=== PATIENT | male | born 1965 | race Caucasian/White ===

== ENCOUNTER 2017-03-25 10:29 | Day surgery (SDC) | payer BC, OTHER ==
[2017-03-17 11:47] VITALS: BMI 25.8
[2017-03-25] MEDS ORDERED: Ketorolac Tromethamine 30 MG/ML VIAL ONE (10:56)
[2017-03-25] MEDS ORDERED: CEFAZOLIN/Water 2 GM/20 ML SYRINGE ONE (10:56)
[2017-03-25 11:24] LABS: #Eosinphils 0.1 thou/uL (0.0-0.7); #Monocytes 0.2 thou/uL (0.11-0.59); #Neutrophils 3.2 thou/uL (1.40-6.50); %Basophils 0.2 % (0.0-1.0); %Eosinophils 3.3 % (0.0-10.0); %Lymphocytes 22.4 % (21.0-51.0); %Monocytes 4.7 % (0.0-10.0); %Neutrophils 69.4 % (42.0-75.0); Hemoglobin 13.3 g/dL (14.0-18.0); Mean Corpuscular HGB CONC 31.8 g/dL (32.0-36.0); Mean Platelet Volume 7.3 fL (7.4-10.4); Platelet Count 169 thou/uL (130-400); RBC Distribution Width 12.5 % (11.5-14.5); Red Blood Cell (RBC) Count 4.14 mill/uL (4.70-6.10); White Blood Cell (WBC) Count 4.6 thou/uL (4.8-10.8)
[2017-03-25 11:41] LABS: Anion Gap 13 mmol/L (10-20); BUN (Urea Nitrogen) 17 mg/dL (8.4-25.7); Calc. Creatinine Clearance 121 mL/min (70-130); Calcium 9.8 mg/dL (7.8-10.44); Carbon Dioxide 26 mmol/L (22-29); Chloride 105 mmol/L (98-107); Estimated GFR-MDRD Greater than 90; Glucose 98 mg/dL (70-105); Potassium 4.4 mmol/L (3.5-5.1); Sodium 140 mmol/L (136-145)
[2017-03-25] MEDS ORDERED: Bupivacaine/Epinephrine 0.25% 30 ML VIAL ONE ×2 (12:07→13:39)
[2017-03-25] MEDS ORDERED: Bupivacaine 0.25% HCL 30 ML VIAL ONE (12:07)
[2017-03-25] MEDS ORDERED: Bupivacaine PF 0.5% 30 ML VIAL ONE (12:10)
[2017-03-25] MEDS ORDERED: Midazolam HCl 2 mg/2 ml Vial ONE (12:11)
[2017-03-25] MEDS ORDERED: Fentanyl 100 MCG/2 ML VIAL ONE ×2 (12:12→13:40)
[2017-03-25] MEDS ORDERED: Propofol 200 MG/20 ML VIAL ONE (13:49)
[2017-03-25] MEDS ORDERED: Lidocaine 1% PF 5 ML VIAL ONE (13:49)
[2017-03-25] MEDS ORDERED: Glycopyrrolate 0.2 MG/ML 5 ML SYRINGE ONE (13:49)
[2017-03-25] MEDS ORDERED: Dexamethasone 20 MG/5 ML VIAL ONE (13:49)
[2017-03-25] MEDS ORDERED: Ondansetron HCl/PF 4 MG/2 ML Vial ONE (13:49)
--- NOTE | 2017-03-25 14:24 | EKG ---
Test Reason : PREOP Blood Pressure : / mmHG Vent. Rate : 063 BPM Atrial Rate : 063 BPM P-R Int : 178 ms QRS Dur : 158 ms QT Int : 468 ms P-R-T Axes : 052 022 161 degrees QTc Int : 478 ms Normal sinus rhythm Possible Left atrial enlargement Left bundle branch block Abnormal ECG When compared with ECG of 01-APR-2016 21:13, No significant change was found Confirmed by DR. Adela VAUGHAN ([id number]) on 03/25/2017 2:23:20 PM Referred By: KALYN Confirmed By:DR. Adela VAUGHAN
--- NOTE | 2017-03-27 14:48 | OP ---
DATE OF PROCEDURE: 03/25/2017 PREOPERATIVE DIAGNOSIS: Left inguinal hernia. POSTOPERATIVE DIAGNOSIS: Left inguinal hernia, pantaloon. OPERATION PERFORMED: Left inguinal hernia repair with mesh patch and plug, utilizing both a medium a nd a large plug for the hernia on both sides of his epigastric vessels. SURGEON: Yevgeniy Crane M.D. ANESTHESIA: General with laryngeal mask airway. INDICATIONS: The patient is a 52-year-old white male. He presents with an easily visible and palpab le left inguinal hernia and was taken to the operating room at this time for repair. DESCRIPTION OF OPERATION: Informed consent was obtained. The patient was taken to the operating lance m where general endotracheal anesthesia was obtained with the patient in supine position. Left groin was trimmed of hair, prepped with ChloraPrep, and draped in sterile fashion. Local anesthetic was i nfiltrated using 0.25% Marcaine with epinephrine. Oblique left inguinal incision was created and dis section was carried through skin and subcutaneous tissue. The fascia was incised parallel to the fib ers so as to open the external ring. Dissection carried out within the inguinal canal was used to is olate the spermatic cord. Careful dissection was carried out revealing that there was what initially appeared to be a direct inguinal hernia, but proved to be a pantaloon hernia. The epigastric vessel s were clearly visualized. There was a significant hernia volume on both sides of the epigastric ves sels and I could not replace all the hernia contents to one side or the other. The larger portion of this was actually indirect. I decided to repair this using 2 separate mesh plugs. A medium and a l arge plugs were obtained. The medium plug was secured to the herniated material in the direct space and the large plug was secured to the herniated material in the indirect space and they were each inv erted in the preperitoneal space. It was secured in place with interrupted sutures of 2-0 Vicryl. T he medial floor of the inguinal canal was also partially imbricated with interrupted sutures of 2-0 V icryl. Mesh patch was obtained, trimmed to appropriate size, placed within the floor of the inguinal canal, and secured in place with several interrupted sutures of 2-0 Vicryl in the standard fashion. An ON-Q pain pump was obtained and tunneled into the wound from a superior entry site and positioned below the fascia and below part of the mesh. The fascia was then closed with 3-0 Vicryl. Remainder of the wound closed in layers with 3-0 and 4-0 Monocryl and Dermabond was placed externally. A ster ile occlusive dressing was applied over the catheter exit site. Attention was then turned to the penile lesions. There were 4 or 5 small pigmented lesions on the do rsum of the penis. The largest two of these were excised after obtaining the local anesthesia with 0 .25% Marcaine with epinephrine. Completely excised and passed off the field. Hemostasis obtained wi th electrocautery. The wound was closed with interrupted sutures of 4-0 Monocryl and Dermabond was p laced externally. Each of these lesions was about 0.4 cm in dimension. There were no complications. The patient tolerated the procedure well and was taken to recovery room in stable condition.
== END 2017-03-25 16:30 | disposition home or self-care (01) ==
LOC: SDC 10:29
PROVIDERS: ATTEND Specialist
PROC: 0YU60JZ Supplement Left Inguinal Region with Synthetic Substitute, Open Approach (ICD-10-PCS; principal; 2017-03-25)
DX: K40.90 Unilateral inguinal hernia, without obstruction or gangrene, not specified as recurrent (principal); L82.0 Inflamed seborrheic keratosis; Z88.5 Allergy status to narcotic agent; Z98.890 Other specified postprocedural states
CPT/HCPCS: 36415; 80048; 85025; 88305; 93005; 93010; A4306; C1781; J0131; J1100; J1885; J2001; J2250; J2405; J2704; J3010; S0020